=== PATIENT | male | born 1980 | race Caucasian/White ===

== ENCOUNTER 2023-05-06 12:00 | Emergency (ER) | payer OTHER, SELFPAY ==
[2023-05-06 12:04] VITALS: BP 142/91
--- NOTE | 2023-05-06 13:29 | ED.GENMED ---
History of Present Illness
General
Chief Complaint: Musculo-Skeletal Complaint
Source: patient
Exam Limitations: none
Time Seen by Provider: 05/06/23 12:26
Nursing documentation reviewed up to this point in time: agreed with
Travel History
Have you had any contact with someone who has COVID-19?: No
Do you have any symptoms of coronavirus? Fever > 100 degrees, chills, cough, shortness of breath, sore throat, loss of taste or smell, muscle aches, or headache?: No
History of Present Illness
History of Present Illness:
43-year-old male presenting to the emergency department today with concerns of a cut to the left thumb. He claims that he hit his finger with a compression hammer prior to arrival and sustained a laceration from this. Denies any numbness weakness
or additional concerns. He claims his tetanus shot is up-to-date. Denies any history of immunosuppression or diabetes.
Past History
Past History
ED Past Medical History: Other (diverticulitis)
ED Past Surgical History: None
Social History
Tobacco: Non-smoker
Alcohol: Occasional
Personal:
Living: with family
Employment: Employed
Review of Systems
Review of Systems
Allergies reviewed?: Yes
All Other Systems: ROS reviewed and negative except as documented in HPI and ROS
Phy Exam
Physical Exam
Physical Exam:
GENERAL: Alert , in no apparent distress
EYE: pupils equal and reactive
NECK: Supple, no significant adenopathy.
ENT: o/p clr, mmm.
CARDIAC: Regular rate and rhythm .
LUNGS: Clear breath sounds bilaterally, no acute respiratory distress, no wheezes/rales/rhonchi
ABDOMEN: Soft, without focal tenderness, no r/g, no cvat
NEUROLOGICAL: Alert and oriented, no focal neuro deficits
SKIN: Laceration to the left thumb on the palmar aspect oblique in orientation distal to the IPJ 3 cm in length warm and dry, skin intact.
MUSCULOSKELETAL: No edema, well perfused.
PSYCH: Normal and appropriate interaction.
Course
Orders/Labs/Results
Orders:
Orders
05/06/23 12:05
Thumb/Finger(s) 2 View Lt [CR Finger(s)/thumb Min 2 Vw Lt] Urgent
Comment:
Reason For Exam: pain, trauma
Indicate Which Finger:: Thumb
Vital Signs
Initial and Last Documented VS:
Initial Vital Signs
Temp Pulse Resp BP Pulse Ox
98.2 F 82 18 142/91 98
05/06/23 12:04 05/06/23 12:04 05/06/23 12:04 05/06/23 12:04 05/06/23 12:04
Last Documented Vital Signs
Temp Pulse Resp BP Pulse Ox
98.2 F 82 18 142/91 98
05/06/23 12:04 05/06/23 12:04 05/06/23 12:04 05/06/23 12:04 05/06/23 12:04
Procedures
Laceration Closure
Left Distal Palmar First Finger:
Status of Wound: clean
Size of Wound in cm: 3
Description of Wound Edges: sharp
Preparation: cleaned with saline
Anesthesia: Marcaine and [facility]
Revision/Debridement: routine- no revision and irrigate-direct pressure
Wound exploration: explored to base- no FB and no tendon involvement
Type of Closure: single layer closure
Skin Closure Material: 4-0 nylon
Number of sutures: 5
MDM/Problems Addressed
MDM/Problems Addressed:
43-year-old male presenting to the emergency department today with concerns of left thumb laceration. Very clean in appearance was wearing gloves at the time that this occurred. No foreign body seen when explored to its base was cleaned thoroughly
and sutured with 5 nonabsorbable sutures. Patient advised to follow-up in 12 to 14 days. Return precautions given. Very low risk for infection not started on prophylactic antibiotics. No fracture seen with my independent interpretation of the
x-ray. Patient up-to-date with his tetanus shot.
*Critical Care Note
Total Time (30-74mins, 75-104mins- exclusive of procedures): Not Applicable
ED Attending Note
-
Portions of this chart may have been created with voice recognition software.� Occasional wrong word or��sound alike� substitutions may have occurred due to the inherent limitations of voice recognition software.
Discharge Plan
Departure
Patient Disposition: Home (Routine Discharge)
Date of Disposition: 05/06/23
Time of Disposition: 13:30
Patient with high blood pressure during this ER visit?: No
Condition: Good
Covid-19: Not Applicable
Discharge Problem:
Finger laceration
Instructions: Laceration Repair With Stitches (DC)
Prescriptions:
No Action
metronidazole 500 MG tablet
500 mg PO TID Qty: 30 0RF
levofloxacin 500 MG tablet
500 mg PO DAILY Qty: 10 0RF
hydrocodone-acetaminophen 1 TABLET tablet
1 - 2 tab PO Q4HPRN PRN (Reason: moderate to severe pain) Qty: 20 0RF
Referrals:
Gavino Baker MD [Family Provider] -
Activity Restrictions/Additional Instructions:
You came to the emergency department today with concerns of a thumb laceration. This was closed with 5 total sutures. Please follow-up closely with your primary care doctor in 12 to 14 days for suture removal. Return to the emergency department
any worsening, new or concerning symptoms.
Interventions
Interventions:
*Nursing Disposition Last Done: 05/06/23 13:34
ED-Musculoskeletal Assessment Last Done: 05/06/23 12:42
Discharge Date and Time
Discharge Date/Time: 05/06/23 13:36
== END 2023-05-06 13:36 | disposition home or self-care (01) ==
LOC: EMR 12:00
PROVIDERS: EMERGENCY PHYSICIAN Student in an Organized Health Care Education/Training Program; FAMILY PHYSICIAN Internal Medicine
DX: S61.012A Laceration without foreign body of left thumb without damage to nail, initial encounter (principal); W45.8XXA Other foreign body or object entering through skin, initial encounter
CPT/HCPCS: 99282; 12002; 73140